=== PATIENT | male | born 1935 | race Caucasian/White ===

== ENCOUNTER → 2018-05-11 | Outpatient (CLI) | payer MEDICARE ==
--- NOTE | 2018-05-11 11:30 | US ---
EXAMINATION TYPE: US kidneys/renal and bladder DATE OF EXAM: 05/11/2018 COMPARISON: NONE CLINICAL HISTORY: R31.9 Hematuria. EXAM MEASUREMENTS: Right Kidney: 10.8 x 5.7 x 6.9 cm Left Kidney: 10.6 x 5.8 x 5.5 cm Right Kidney: 1.7 x 1.3 x 1.5 cortical cyst mid pole Left Kidney: 2 small cysts lower lateral pole 0.7 x 0.6 x 1.0 cm and 1.0 x 0.9 x 0.9 cm respectively Bladder: Enlarged prostate deforms contour of bladder Bilateral Jets seen: Yes There is no evidence for hydronephrosis at this point in time. No nephrolithiasis is seen. [employer] a few small simple appearing cysts in both kidneys. The urinary bladder is anechoic. Bila teral ureteral jets are seen. Prominent prostate along bladder base is noted. IMPRESSION: Probable BPH. No suspicious finding is seen to account for patient's symptoms of hematuria. If sympto ms persists further investigation with CT urogram would be warranted.
== END ==
LOC: RADUSWWP 10:39
PROVIDERS: ATTEND Urology
DX: R31.9 Hematuria, unspecified (principal)
CPT/HCPCS: 76770